=== PATIENT | female | born 1990 | race Caucasian/White ===

== ENCOUNTER 2020-02-21 07:17 | Inpatient (IN) | payer BC ==
[~2020-02-21 07:17] MED LIST: Bupivacaine 0.25% 10 ML SDV ONE; ePHEDrine Sulfate/0.9% NaCl/Pf 25 MG/5 ML SYRINGE IV ONE
[2020-02-21] MEDS ORDERED: Sodium Chloride 0.9% 10 ML Syringe FLUSH PRN (07:28)
[2020-02-21] MEDS ORDERED: Ondansetron 4 MG/2 ML SDV IVPUSH PRN (07:28)
[2020-02-21] MEDS ORDERED: Nalbuphine 10 MG/ML Syringe IVPUSH PRN (07:28)
[2020-02-21] MEDS ORDERED: Oxytocin/Lactated Ringers 10 UNIT/1,000 ML BAG IV SCH ×2 (07:30)
[2020-02-21] MEDS: Lactated Ringers 1,000 ML IV SCH ×3 (08:57→11:27)
[2020-02-21] MEDS ORDERED: fentaNYL 100 MCG/2 ML SDV EPIDUR PRN (09:07)
[2020-02-21] MEDS ORDERED: ePHEDrine 50 MG/ML SDV IVPUSH PRN (09:07)
[2020-02-21] MEDS ORDERED: Bupivacaine/fentaNYL/NS 100 ML Bag EPIDUR PRN (09:07)
[2020-02-21] MEDS ORDERED: diphenhydrAMINE 50 MG/ML SDV IVPUSH PRN (09:07)
--- NOTE | 2020-02-21 10:32 | PCM.PREANE ---
Preanesthetic Assessment - Procedure Proposed Procedure: epid - Anesthesia/Transfusion/Family Hx Anesthesia History: Prior Anesthesia Without Reaction Family History of Anesthesia Reaction: No Transfusion History: No Prior Transfusion(s) Type of Transfusion Reactions: Reports: Unknown - Review of Systems General: No Symptoms Pulmonary: No Symptoms Cardiovascular: No Symptoms Gastrointestinal: No Symptoms Neurological: No Symptoms Other: Reports: Depression, Anxiety - Physical Assessment Vital Signs: Last Vital Signs Temp 99.2 F 02/21/20 07:43 Pulse 74 02/21/20 07:43 Resp 16 02/21/20 07:43 BP 130/87 02/21/20 07:43 Pulse Ox 97 02/21/20 07:43 Height: 5 ft 7 in Weight: 89.811 kg ASA Class: 2 Mental Status: Alert & Oriented x3 Airway Class: Mallampati = 1 Dentition: Reports: Normal Dentition Thyro-Mental Finger Breadths: 3 Mouth Opening Finger Breadths: 3 ROM/Head Extension: Full Lungs: Clear to Auscultation, Normal Respiratory Effort Cardiovascular: Regular Rate, Regular Rhythm - Lab Values: Laboratory Last Values WBC 8.91 K/mm3 (3.98-10.04) 02/21/20 07:54 RBC 4.35 M/mm3 (3.98-5.22) 02/21/20 07:54 Hgb 12.4 gm/dl (11.2-15.7) 02/21/20 07:54 Hct 37.2 % (34.1-44.9) 02/21/20 07:54 MCV 85.5 fl (79.4-94.8) 02/21/20 07:54 MCH 28.5 pg (25.6-32.2) 02/21/20 07:54 MCHC 33.3 g/dl (32.2-35.5) 02/21/20 07:54 RDW Std Deviation 39.9 fL (36.4-46.3) 02/21/20 07:54 Plt Count 239 K/mm3 (182-369) 02/21/20 07:54 MPV 9.4 fl (9.4-12.3) 02/21/20 07:54 Neut % (Auto) 76.4 % (34.0-71.1) H 02/21/20 07:54 Lymph % (Auto) 13.4 % (19.3-51.7) L 02/21/20 07:54 [place] % (Auto) 9.1 % (4.7-12.5) 02/21/20 07:54 Eos % (Auto) 0.8 (0.7-5.8) 02/21/20 07:54 Baso % (Auto) 0.2 % (0.1-1.2) 02/21/20 07:54 Neut # (Auto) 6.81 K/mm3 (1.56-6.13) H 02/21/20 07:54 Lymph # (Auto) 1.19 K/mm3 (1.18-3.74) 02/21/20 07:54 [place] # (Auto) 0.81 K/mm3 (0.24-0.36) H 02/21/20 07:54 Eos # (Auto) 0.07 K/mm3 (0.04-0.36) 02/21/20 07:54 Baso # (Auto) 0.02 K/mm3 (0.01-0.08) 02/21/20 07:54 SARS-CoV-2 RNA (FRANCES) Negative (NEGATIVE) 02/21/20 07:54 Blood Type AB POSITIVE 02/21/20 07:54 Gel Antibody Screen Negative 02/21/20 07:54 - Allergies Allergies/Adverse Reactions: Allergies Allergy/AdvReac Type Severity Reaction Status Date / Time No Known Allergies Allergy Verified 02/21/20 07:27 - Blood Blood Available: No - Acknowledgements Anesthesia Type Planned: Epidural Pt an Appropriate Candidate for the Planned Anesthesia: Yes Alternatives and Risks of Anesthesia Discussed w Pt/Guardian: Yes Pt/Guardian Understands and Agrees with Anesthesia Plan: Yes PreAnesthesia Questionnaire Cardiovascular History: Reports: None Respiratory History: Reports: None Gastrointestinal History: Reports: None 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: 3 Musculoskeletal History: Reports: None Psychiatric History: Reports: Anxiety, Depression, Other (See Below) Other Psychiatric History: Previously on meds, pt states she will start meds again after delivery of this baby Oncologic (Cancer) History: Reports: None - Past Surgical History HEENT Surgical History: Reports: Oral Surgery Musculoskeletal Surgical History: Reports: Other (See Below) Other Musculoskeletal Surgeries/Procedures:: 2006 left knee surgery Dermatological Surgical History: Reports: None - SUBSTANCE USE Tobacco Use Status *Q: Former Tobacco User Tobacco Use Within Last Twelve Months: Cigarettes Second Hand Smoke Exposure: No Days Per Week of Alcohol Use: 0 Recreational Drug Use History: No - HOME MEDS Home Medications: Home Meds Cyanocobalamin (Vitamin B-12) [Vitamin B-12] 500 mcg SL DAILY 02/21/20 [History] Magnesium Amino Acid Chelate [Magnesium] 100 mg PO DAILY 02/21/20 [History] Pnv No.95/Ferrous Fum/Folic AC [ Tablet] 1 tab PO DAILY 02/21/20 [History] - CURRENT (IN HOUSE) MEDS Current Meds: Current Medications Diphenhydramine HCl (Benadryl) 25 mg IVPUSH Q6H PRN PRN Reason: pruritis Ephedrine Sulfate (Ephedrine Sulfate) 5 mg IVPUSH ASDIRECTED PRN PRN Reason: Hypotension Fentanyl (Sublimaze) 100 mcg EPIDUR Q3H PRN PRN Reason: Pain Fentanyl/Bupivacaine HCl (Fentanyl/Bupivacaine/Ns 2 Mcg-0.125% 100 Ml) 100 ml EPIDUR ASDIRECTED PRN PRN Reason: Pain Oxytocin/Lactated Ringer's (Pitocin In Lr 10 Units/1,000 Ml) 10 unit in 1,000 mls @ 12 mls/hr IV TITRATE АНДРЕЙ; Protocol Last Admin: 02/21/20 08:58 Dose: 2 munits/min, 12 mls/hr Documented by: Oxytocin/Lactated Ringer's (Pitocin In Lr 10 Units/1,000 Ml) 10 unit in 1,000 mls @ 100 mls/hr IV .CONTINUOUS АНДРЕЙ Lactated Ringer's (Ringers, Lactated) 1,000 mls @ 100 mls/hr IV ASDIRECTED АНДРЕЙ Last Admin: 02/21/20 10:26 Dose: 100 mls/hr Documented by: Nalbuphine HCl (Nubain) 10 mg IVPUSH Q2H PRN PRN Reason: Pain Ondansetron HCl (Zofran) 4 mg IVPUSH Q4H PRN PRN Reason: Nausea/Vomiting Sodium Chloride (Saline Flush) 10 ml FLUSH ASDIRECTED PRN PRN Reason: Keep Vein Open
--- NOTE | 2020-02-21 11:43 | PCM.LDHP ---
L&D History of Present Illness - General Date of Service: 02/21/20 Admit Problem/Dx: Patient Status Order with Admit Dx/Problem 02/21/20 07:28 Patient Status [ADT] Routine Admission Diagnosis/Problem Admission Diagnosis/Problem Source of Information: Patient History Limitations: Reports: No Limitations - History of Present Illness Introduction:: Patient is a 29 y/o at 39 0/7 wks who presents for IOL given distance from hospital. Doing well today. 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): Psychiatric History: Reports: Anxiety, Depression - Past Surgical History HEENT Surgical History: Reports: Oral Surgery Musculoskeletal Surgical History: Reports: Other (See Below) Other Musculoskeletal Surgeries/Procedures:: 2005 left knee surgery Dermatological Surgical History: Reports: None Social & Family History - Family History Family Medical History: Noncontributory - Tobacco Use Tobacco Use Status *Q: Former Tobacco User Years of Tobacco use: 8 Packs/Tins Daily: 0.5 Used Tobacco, but Quit: Yes Month/Year Tobacco Last Used: 2017 Second Hand Smoke Exposure: No - Alcohol Use Alcohol Use History: No Days Per Week of Alcohol Use: 0 - Recreational Drug Use Recreational Drug Use: No H&P Review of Systems - Review of Systems: Review Of Systems: See Below General: Reports: No Symptoms Pulmonary: Reports: No Symptoms Cardiovascular: Reports: No Symptoms Gastrointestinal: Reports: No Symptoms Genitourinary: Reports: No Symptoms Musculoskeletal: Reports: No Symptoms Psychiatric: Reports: No Symptoms Neurological: Reports: No Symptoms L&D Exam - Exam Exam: See Below - Vital Signs Vital Signs: Last Vital Signs Temp 37.3 C 02/21/20 07:43 Pulse 74 02/21/20 07:43 Resp 16 10/13/20 07:43 BP 130/87 02/21/20 07:43 Pulse Ox 97 02/21/20 07:43 Weight: 89.811 kg - OB Specific Contraction Intensity: Mild to Moderate Movement: Active Heart Tones: Present Heart Tones per Min: 150 Heart Rate (FHR) Variability: Moderate (6-25 bmp) Presentation: Vertex - Pan Score Pan Score Cervix Position: Midposition Pan Score Consistency: Soft Pan Score Effacement: 51-70% Apn Score Dilation: 1-2 cm Pan Score 's Station: -3 Pan Score Total: 6 - Exam General: Alert, Oriented, Cooperative Lungs: Clear to Auscultation, Normal Respiratory Effort Cardiovascular: Regular Rate, Regular Rhythm GI/Abdominal Exam: Soft, Non-Tender Genitourinary: Normal external exam Extremities: Normal Inspection Skin: Warm, Dry, Intact - Patient Data Lab Results Last 24 hrs: Laboratory Results - last 24 hr 02/21/20 02/21/20 02/21/20 Range/Units 07:54 07:54 07:54 WBC 8.91 (3.98-10.04) K/mm3 RBC 4.35 (3.98-5.22) M/mm3 Hgb 12.4 (11.2-15.7) gm/dl Hct 37.2 (34.1-44.9) % MCV 85.5 (79.4-94.8) fl MCH 28.5 (25.6-32.2) pg MCHC 33.3 (32.2-35.5) g/dl RDW Std Deviation 39.9 (36.4-46.3) fL Plt Count 239 (182-369) K/mm3 MPV 9.4 (9.4-12.3) fl Neut % (Auto) 76.4 H (34.0-71.1) % Lymph % (Auto) 13.4 L (19.3-51.7) % [place] % (Auto) 9.1 (4.7-12.5) % Eos % (Auto) 0.8 (0.7-5.8) Baso % (Auto) 0.2 (0.1-1.2) % Neut # (Auto) 6.81 H (1.56-6.13) K/mm3 Lymph # (Auto) 1.19 (1.18-3.74) K/mm3 [place] # (Auto) 0.81 H (0.24-0.36) K/mm3 Eos # (Auto) 0.07 (0.04-0.36) K/mm3 Baso # (Auto) 0.02 (0.01-0.08) K/mm3 SARS-CoV-2 RNA (FRANCES) Negative (NEGATIVE) Blood Type AB POSITIVE Gel Antibody Screen Negative Result Diagrams: 02/21/20 07:54 - Problem List (1) 39 weeks gestation of SNOMED Code(s): 08945190 ICD Code: Z3A.39 - 39 WEEKS GESTATION OF Status: Acute Current Visit: Yes Problem List Initiated/Reviewed/Updated: Yes Orders Last 24hrs: Active Orders 24 hr Category Date Time Status Patient Status [ADT] Routine ADT 02/21/20 07:28 Active Activity as Tolerated [RC] PFP Care 02/21/20 07:28 Active Communication Order [RC] ASDIRECTED Care 02/21/20 07:28 Active Notify Provider [RC] ASDIRECTED Care 02/21/20 09:07 Active Notify Provider [RC] PFP Care 02/21/20 07:28 Active Notify Provider [RC] PRN Care 02/21/20 07:28 Active Peripheral IV Care [RC] . DIRECTED Care 02/21/20 07:28 Active Pump Management, Intrathecal [RC] ASDIRECTED Care 02/21/20 07:29 Active Vital Signs [RC] PER UNIT ROUTINE Care 02/21/20 07:28 Active Regular Diet [DIET] Diet 02/21/20 Breakfast Active PATIENT RETYPE [BBK] Routine Lab 02/21/20 08:46 Ordered RAPID PLASMA REAGIN,RPR [CHEM] Routine Lab 02/21/20 07:54 Received Bupivacaine/fentaNYL/NS [fentaNYL/Bupivacaine/NS 2 MCG- Med 02/21/20 09:07 Active 0.125% 100 ML] 100 ml EPIDUR ASDIRECTED PRN Lactated Ringers [Ringers, Lactated] 1,000 ml Med 02/21/20 07:30 Active IV ASDIRECTED Nalbuphine [Nubain] Med 02/21/20 07:28 Active 10 mg IVPUSH Q2H PRN Ondansetron [Zofran] Med 02/21/20 07:28 Active 4 mg IVPUSH Q4H PRN Oxytocin/Lactated Ringers [Pitocin in LR 10 Units/1,000 Med 02/21/20 07:30 Active ML] 10 unit in 1,000 ml IV .CONTINUOUS Oxytocin/Lactated Ringers [Pitocin in LR 10 Units/1,000 Med 02/21/20 07:30 Active ML] 10 unit in 1,000 ml IV TITRATE Sodium Chloride 0.9% [Saline Flush] Med 02/21/20 07:28 Active 10 ml FLUSH ASDIRECTED PRN diphenhydrAMINE [Benadryl] Med 02/21/20 09:07 Active 25 mg IVPUSH Q6H PRN ePHEDrine [ePHEDrine sulfate] Med 02/21/20 09:07 Active 5 mg IVPUSH ASDIRECTED PRN fentaNYL [Sublimaze] Med 02/21/20 09:07 Active 100 mcg EPIDUR Q3H PRN Electronic Heart Tones Ext w TOCO [WOMSER] Oth 02/21/20 07:28 Ordered Routine Electronic Heart Tones Internal [WOMSER] Per Unit Oth 02/21/20 07:28 Ordered Routine Peripheral IV Insertion Adult [OM.PC] Routine Oth 02/21/20 07:28 Ordered Resuscitation Status Routine Resus Stat 02/21/20 07:28 Ordered Medication Orders Diphenhydramine HCl (Benadryl) 25 mg IVPUSH Q6H PRN PRN Reason: pruritis Ephedrine Sulfate (Ephedrine Sulfate) 5 mg IVPUSH ASDIRECTED PRN PRN Reason: Hypotension Fentanyl (Sublimaze) 100 mcg EPIDUR Q3H PRN PRN Reason: Pain Last Admin: 02/21/20 10:43 Dose: 100 mcg Documented by: ZAFAR Fentanyl/Bupivacaine HCl (Fentanyl/Bupivacaine/Ns 2 Mcg-0.125% 100 Ml) 100 ml EPIDUR ASDIRECTED PRN PRN Reason: Pain Last Admin: 02/21/20 10:43 Dose: 100 ml Documented by: ZAFAR Oxytocin/Lactated Ringer's (Pitocin In Lr 10 Units/1,000 Ml) 10 unit in 1,000 mls @ 12 mls/hr IV TITRATE АНДРЕЙ; Protocol Last Titration: 02/21/20 10:00 Dose: 4 munits/min, 24 mls/hr Documented by: Admin: 02/21/20 08:58 Dose: 2 munits/min, 12 mls/hr Documented by: ZAFAR Oxytocin/Lactated Ringer's (Pitocin In Lr 10 Units/1,000 Ml) 10 unit in 1,000 mls @ 100 mls/hr IV .CONTINUOUS АНДРЕЙ Lactated Ringer's (Ringers, Lactated) 1,000 mls @ 100 mls/hr IV ASDIRECTED АНДРЕЙ Last Admin: 02/21/20 11:27 Dose: 100 mls/hr Documented by: Infusion: 02/21/20 11:27 Dose: 100 mls/hr Documented by: Admin: 02/21/20 10:26 Dose: 100 mls/hr Documented by: Infusion: 02/21/20 10:26 Dose: 100 mls/hr Documented by: Admin: 02/21/20 08:57 Dose: 100 mls/hr Documented by: ZAFAR Nalbuphine HCl (Nubain) 10 mg IVPUSH Q2H PRN PRN Reason: Pain Ondansetron HCl (Zofran) 4 mg IVPUSH Q4H PRN PRN Reason: Nausea/Vomiting Sodium Chloride (Saline Flush) 10 ml FLUSH ASDIRECTED PRN PRN Reason: Keep Vein Open Assessment/Plan Comment:: * Labs done * GBS negative * Pitocin / AROM * Pain management per patient preference * Anticipate
--- NOTE | 2020-02-21 11:43 | PCM.PNLD ---
Labor Progress Note - VS & Meds Vital Signs: Last Vital Signs Temp 37.3 C 02/21/20 07:43 Pulse 74 02/21/20 07:43 Resp 16 02/21/20 07:43 BP 130/87 02/21/20 07:43 Pulse Ox 97 02/21/20 07:43 Active Medications: Current Medications Diphenhydramine HCl (Benadryl) 25 mg IVPUSH Q6H PRN PRN Reason: pruritis Ephedrine Sulfate (Ephedrine Sulfate) 5 mg IVPUSH ASDIRECTED PRN PRN Reason: Hypotension Fentanyl (Sublimaze) 100 mcg EPIDUR Q3H PRN PRN Reason: Pain Last Admin: 02/21/20 10:43 Dose: 100 mcg Documented by: Fentanyl/Bupivacaine HCl (Fentanyl/Bupivacaine/Ns 2 Mcg-0.125% 100 Ml) 100 ml EPIDUR ASDIRECTED PRN PRN Reason: Pain Last Admin: 02/21/20 10:43 Dose: 100 ml Documented by: Oxytocin/Lactated Ringer's (Pitocin In Lr 10 Units/1,000 Ml) 10 unit in 1,000 mls @ 12 mls/hr IV TITRATE АНДРЕЙ; Protocol Last Titration: 02/21/20 10:00 Dose: 4 munits/min, 24 mls/hr Documented by: Oxytocin/Lactated Ringer's (Pitocin In Lr 10 Units/1,000 Ml) 10 unit in 1,000 mls @ 100 mls/hr IV .CONTINUOUS АНДРЕЙ Lactated Ringer's (Ringers, Lactated) 1,000 mls @ 100 mls/hr IV ASDIRECTED АНДРЕЙ Last Admin: 02/21/20 11:27 Dose: 100 mls/hr Documented by: Nalbuphine HCl (Nubain) 10 mg IVPUSH Q2H PRN PRN Reason: Pain Ondansetron HCl (Zofran) 4 mg IVPUSH Q4H PRN PRN Reason: Nausea/Vomiting Sodium Chloride (Saline Flush) 10 ml FLUSH ASDIRECTED PRN PRN Reason: Keep Vein Open - Uterine Contractions Uterine Monitoring Mode: External [place] Contraction Intensity: Mild to Moderate Uterine Resting Tone: Soft - Monitoring Monitor Mode: External Ultrasound Heart Rate (FHR) Baseline: 130 Heart Rate (FHR) Variability: Moderate (6-25 bmp) Accelerations: Present, 15x15 Decelerations: None Strip Review: Category I - Vaginal Exam Dilation (cm): 3 Effacement (Percent): 50 Station: -2 Cervical Position: Midposition - Labor Progress (Free Text) Labor Progress: Doing well. AROM performed with release of scant amount of fluid. Continue pitocin per protocol. Currently at 4
--- NOTE | 2020-02-21 16:06 | PCM.DEL ---
L & D Note - General Info Date of Service: 02/21/20 - Delivery Note Labor: Induced by ARM, Induced by Oxytocin Delivery Outcome: Livebirth Infant Delivery Method: Spontaneous Vaginal Delivery-Single Infant Delivery Mode: Vacuum Extraction Presentation: Right Occiput Posterior (ROP) Nuchal Cord: Present, Reduced Anesthesia Type: Epidural Amniotic Fluid Description: Clear Episiotomy Type: None Laceration: 1st Degree, Perineal Suture type: Vicryl Suture size: 2-0 Placenta: Intact, Spontaneous Cord: 3 Vessels Estimated Blood Loss: 100 [place]: Bulb Syringe, Stimulated, Warmed, [place] Used, Warmer Used Delivery Comments (Free Text/Narrative):: The patient was pushing in the dorsal lithotomy position. Sterile vaginal exam complete/complete/+3 station. head in ROP presentation. Maternal pushing effort was good and the pelvis was felt to be adequate for an instrument assisted delivery. Patient noted to have persistent variable decelerations with pushing. These initially were note as deep, but as pushing went on FHR would drop into the 60's' and then was only recovering into the 90's and 100's. Given concern for potential compromise the decision was made to proceed with vacuum assisted vaginal delivery. The mushroom cup was placed without difficulty with care to avoid the vaginal side taveras at 15:42:41. Total pressure applied 550 mm Hg. Hissing like sound noted from vacuum and noted to come off at 15:43:05 or only 15 seconds later. Not really felt to be a pop off. Reapplied again at 15:43:38 and with similar sound and release at 15:44:00 or only 20 seconds. Given these releases were felt be more malfunction than popoff one last placement done at 15:44:56, but again released at 15:45:13. At this time vacuum abandoned. head close to crowing. Pressure applied on perineum to aid in head emergence. head delivered from ROP presentation. Nuchal cord present and reduced. With gentle downward traction the shoulders and body delivered. Infant placed on maternal abdomen. Cord clamped and cut. Cord blood obtained for cord gas. Cord blood obtained. Placenta allowed time to separate and expelled intact. Inspection of the perineum showed small 1st degree laceration which was repaired with a 2-0 Vicryl in the typical fashion. Vacuum Extractor Progress Note - Alternative Labor Strategies Considered Alternative Labor Strategies Considered:: Reports: Yes Strategies Considered:: Reports: Contraction Intensity Adequate Indications Considered:: Reports: Yes Indications:: Reports: Suspicion of Immediate or Potential Compromise Time Out:: Reports: Yes - Patient Prepared Patient Prepared:: Reports: Yes Informed Consent:: Reports: Verbal Risks: Reports: Yes Risks Include:: Reports: Laceration, Maternal Injury, Other ( injury) Anesthesia/Analgesia Adequate:: Reports: Yes - Probability of Success High Probability of Success:: Reports: Yes Weight Estimated:: Reports: AGA Patient Diabetic:: Reports: No Pelvis Adequate:: Reports: Yes Position:: ROP Asynclitic:: Reports: No Station:: +3 - Application Time Maximum Application Time & Number of Pop-Offs Predetermined:: Reports: Yes Maximum Pressure Maintained in [place] (cm Hg):: 550 Total Application Time (min): *max=20min: 1 Number of Times Cup Disengaged:: 0 (See description of delivery ) Type of Vacuum Used:: Reports: Cup: Mushroom type - Exit Strategy Exit strategy available:: Reports: Yes and resuscitation teams readily available:: Reports: Yes - General Info Date of Service: 02/21/20 - Patient Data Weight - Most Recent: 89.811 kg - Problem List & Annotations (1) 39 weeks gestation of SNOMED Code(s): 54004322 Code(s): Z3A.39 - 39 WEEKS GESTATION OF Status: Acute Current Visit: Yes (2) Vaginal delivery SNOMED Code(s): 493996046 Code(s): O80 - ENCOUNTER FOR FULL-TERM UNCOMPLICATED DELIVERY Status: Acute Current Visit: Yes - Problem List Review Problem List Initiated/Reviewed/Updated: Yes - My Orders Last 24 Hours: My Active Orders 02/21/20 Breakfast Regular Diet [DIET] 02/21/20 07:28 Patient Status [ADT] Routine Activity as Tolerated [RC] PFP Communication Order [RC] ASDIRECTED Notify Provider [RC] PFP Notify Provider [RC] PRN Peripheral IV Care [RC] . DIRECTED Vital Signs [RC] PER UNIT ROUTINE Nalbuphine [Nubain] 10 mg IVPUSH Q2H PRN Ondansetron [Zofran] 4 mg IVPUSH Q4H PRN Sodium Chloride 0.9% [Saline Flush] 10 ml FLUSH ASDIRECTED PRN Electronic Heart Tones Ext w TOCO [WOMSER] Routine Electronic Heart Tones Internal [WOMSER] Per Unit Routine Peripheral IV Insertion Adult [OM.PC] Routine Resuscitation Status Routine 02/21/20 07:29 Pump Management, Intrathecal [RC] ASDIRECTED 02/21/20 07:30 Lactated Ringers [Ringers, Lactated] 1,000 ml IV ASDIRECTED Oxytocin/Lactated Ringers [Pitocin in LR 10 Units/1,000 ML] 10 unit in 1,000 ml IV .CONTINUOUS Oxytocin/Lactated Ringers [Pitocin in LR 10 Units/1,000 ML] 10 unit in 1,000 ml IV TITRATE 02/21/20 07:54 RAPID PLASMA REAGIN,RPR [CHEM] Routine 02/21/20 08:46 PATIENT RETYPE [BBK] Routine 02/21/20 16:03 Patient Status Manage Transfer [TRANSFER] Routine - Assessment Assessment:: PPD#0 - Plan Plan:: * Routine cares * Breast feeding * Discharge home in 1-2 days
[2020-02-21] MEDS ORDERED: Benzocaine/Menthol 20%-0.5% Spray 56 GM Canister TOP PRN (16:28)
[2020-02-21] MEDS ORDERED: Acetaminophen 325 MG Tab PO PRN (16:28)
[2020-02-21] MEDS ORDERED: Witch Hazel Medicated Pads 40/Jar TOP PRN (16:28)
[2020-02-21] MEDS: Ibuprofen 600 MG Tab PO PRN (17:50)
[2020-02-22] MEDS: Ibuprofen 600 MG Tab PO PRN ×3 (02:20→19:00)
--- NOTE | 2020-02-22 07:00 | PCM.PNPP ---
- General Info Date of Service: 02/22/20 Functional Status: Reports: Pain Controlled, Tolerating Diet, Ambulating, Urinating - Review of Systems General: Reports: No Symptoms Pulmonary: Reports: No Symptoms Cardiovascular: Reports: No Symptoms Gastrointestinal: Reports: No Symptoms Genitourinary: Reports: No Symptoms Musculoskeletal: Reports: No Symptoms Neurological: Reports: No Symptoms - Patient Data Vital Signs - Most Recent: Last Vital Signs Temp 36.9 C 02/22/20 04:38 Pulse 59 L 02/22/20 04:38 Resp 16 02/22/20 04:38 BP 105/65 02/22/20 04:38 Pulse Ox 98 02/22/20 04:38 Weight - Most Recent: 89.811 kg I&O - Last 24 Hours: Intake & Output 02/21/20 02/22/20 02/22/20 22:59 06:59 14:59 Intake Total 4240 Output Total 500 Balance 3740 Lab Results - Last 24 Hours: Laboratory Results - last 24 hr 02/21/20 02/21/20 02/21/20 Range/Units 07:54 07:54 07:54 WBC 8.91 (3.98-10.04) K/mm3 RBC 4.35 (3.98-5.22) M/mm3 Hgb 12.4 (11.2-15.7) gm/dl Hct 37.2 (34.1-44.9) % MCV 85.5 (79.4-94.8) fl MCH 28.5 (25.6-32.2) pg MCHC 33.3 (32.2-35.5) g/dl RDW Std Deviation 39.9 (36.4-46.3) fL Plt Count 239 (182-369) K/mm3 MPV 9.4 (9.4-12.3) fl Neut % (Auto) 76.4 H (34.0-71.1) % Lymph % (Auto) 13.4 L (19.3-51.7) % [place] % (Auto) 9.1 (4.7-12.5) % Eos % (Auto) 0.8 (0.7-5.8) Baso % (Auto) 0.2 (0.1-1.2) % Neut # (Auto) 6.81 H (1.56-6.13) K/mm3 Lymph # (Auto) 1.19 (1.18-3.74) K/mm3 [place] # (Auto) 0.81 H (0.24-0.36) K/mm3 Eos # (Auto) 0.07 (0.04-0.36) K/mm3 Baso # (Auto) 0.02 (0.01-0.08) K/mm3 RPR Non-reactive (NONREACTIVE) SARS-CoV-2 RNA (FRANCES) (NEGATIVE) Blood Type AB POSITIVE Gel Antibody Screen Negative 02/21/20 Range/Units 07:54 WBC (3.98-10.04) K/mm3 RBC (3.98-5.22) M/mm3 Hgb (11.2-15.7) gm/dl Hct (34.1-44.9) % MCV (79.4-94.8) fl MCH (25.6-32.2) pg MCHC (32.2-35.5) g/dl RDW Std Deviation (36.4-46.3) fL Plt Count (182-369) K/mm3 MPV (9.4-12.3) fl Neut % (Auto) (34.0-71.1) % Lymph % (Auto) (19.3-51.7) % [place] % (Auto) (4.7-12.5) % Eos % (Auto) (0.7-5.8) Baso % (Auto) (0.1-1.2) % Neut # (Auto) (1.56-6.13) K/mm3 Lymph # (Auto) (1.18-3.74) K/mm3 [place] # (Auto) (0.24-0.36) K/mm3 Eos # (Auto) (0.04-0.36) K/mm3 Baso # (Auto) (0.01-0.08) K/mm3 RPR (NONREACTIVE) SARS-CoV-2 RNA (FRANCES) Negative (NEGATIVE) Blood Type Gel Antibody Screen Med Orders - Current: Current Medications Acetaminophen (Tylenol) 650 mg PO Q4H PRN PRN Reason: mild pain or fever Benzocaine/Menthol (Dermoplast Pain Relief [place]) 0 gm TOP ASDIRECTED PRN PRN Reason: Perineal Comfort Measure Last Admin: 02/21/20 17:49 Dose: 1 canister Documented by: Docusate Sodium (Colace) 100 mg PO BID PRN PRN Reason: Constipation Ibuprofen (Motrin) 600 mg PO Q6H PRN PRN Reason: Mild pain or fever Last Admin: 02/22/20 02:20 Dose: 600 mg Documented by: Kenny Tidwell ([place]) 1 pad TOP ASDIRECTED PRN PRN Reason: Perineal Comfort Measure Last Admin: 02/21/20 17:49 Dose: 1 container Documented by: Discontinued Medications Diphenhydramine HCl (Benadryl) 25 mg IVPUSH Q6H PRN PRN Reason: pruritis Ephedrine Sulfate (Ephedrine Sulfate) 5 mg IVPUSH ASDIRECTED PRN PRN Reason: Hypotension Fentanyl (Sublimaze) 100 mcg EPIDUR Q3H PRN PRN Reason: Pain Last Admin: 02/21/20 10:43 Dose: 100 mcg Documented by: Fentanyl/Bupivacaine HCl (Fentanyl/Bupivacaine/Ns 2 Mcg-0.125% 100 Ml) 100 ml EPIDUR ASDIRECTED PRN PRN Reason: Pain Last Admin: 02/21/20 10:43 Dose: 100 ml Documented by: Oxytocin/Lactated Ringer's (Pitocin In Lr 10 Units/1,000 Ml) 10 unit in 1,000 mls @ 12 mls/hr IV TITRATE АНДРЕЙ; Protocol Last Titration: 02/21/20 15:48 Dose: 166.5 munits/min, 999 mls/hr Documented by: Oxytocin/Lactated Ringer's (Pitocin In Lr 10 Units/1,000 Ml) 10 unit in 1,000 mls @ 100 mls/hr IV .CONTINUOUS АНДРЕЙ Lactated Ringer's (Ringers, Lactated) 1,000 mls @ 100 mls/hr IV ASDIRECTED АНДРЕЙ Last Admin: 02/21/20 11:27 Dose: 100 mls/hr Documented by: Nalbuphine HCl (Nubain) 10 mg IVPUSH Q2H PRN PRN Reason: Pain Ondansetron HCl (Zofran) 4 mg IVPUSH Q4H PRN PRN Reason: Nausea/Vomiting Sodium Chloride (Saline Flush) 10 ml FLUSH ASDIRECTED PRN PRN Reason: Keep Vein Open - Interaction Disposition, : [place] in Room with Family Interaction: Holding Infant Infant Feeding: Attempted ; Nursed Fair/Poor, Bottle Fed Infant Support Person: - Recovery Exam Fundal Tone: Firm Fundal Level: At Umbilicus Fundal Placement: Midline Lochia Amount: Small Lochia Color: Rubra/Red Perineum Description: Intact, Minimal Bruising/Swelling Episiotomy/Laceration: Approximated Bladder Status: Voiding Urinary Elimination: Voided - Exam General: Alert, Oriented, Cooperative GI/Abdominal Exam: Soft, Non-Tender Extremities: Normal Inspection Skin: Warm, Dry, Intact - Problem List & Annotations (1) 39 weeks gestation of SNOMED Code(s): 12415707 Code(s): Z3A.39 - 39 WEEKS GESTATION OF Status: Acute Current Visit: Yes (2) Vaginal delivery SNOMED Code(s): 766237958 Code(s): O80 - ENCOUNTER FOR FULL-TERM UNCOMPLICATED DELIVERY Status: Acute Current Visit: Yes - Problem List Review Problem List Initiated/Reviewed/Updated: Yes - My Orders Last 24 Hours: My Active Orders 02/21/20 07:28 Resuscitation Status Routine 02/21/20 16:28 Acetaminophen [TylenoL] 650 mg PO Q4H PRN Benzocaine/Menthol [Dermoplast Pain Relief [place]] See Dose Instructions TOP ASDIRECTED PRN Docusate Sodium [Colace] 100 mg PO BID PRN Ibuprofen [Motrin] 600 mg PO Q6H PRN witch Leroy [Tucks] 1 pad TOP ASDIRECTED PRN Heat Therapy [OM.PC] PRN 02/21/20 16:28 Activity as Tolerated [RC] PER UNIT ROUTINE Vital Signs [RC] 03,09,15,21 Assess Lochia [WOMSER] Per Unit Routine Assess Uterine Involution [WOMSER] Per Unit Routine Breast Pump [WOMSER] Per Unit Routine Ice Therapy [OM.PC] Per Unit Routine Perineal Care [OM.PC] Per Unit Routine Peripheral IV Discontinue [OM.PC] Routine Sitz Bath [OM.PC] Per Unit Routine 02/21/20 Dinner Regular Diet [DIET] 02/22/20 16:28 Heat Therapy [OM.PC] PRN - Assessment Assessment:: PPD#1 - Plan Plan:: * Routine cares * Breast feeding * Discharge home today or tomorrow depending upon Cardiopulmonary Technologist preference
--- NOTE | 2020-02-22 07:13 | PCM48HPAN ---
Post Anesthesia Note - EVALUATION WITHIN 48HRS OF ANESTHETIC Vital Signs in Normal Range: Yes Patient Participated in Evaluation: Yes Respiratory Function Stable: Yes Airway Patent: Yes Cardiovascular Function Stable: Yes Hydration Status Stable: Yes Pain Control Satisfactory: Yes Nausea and Vomiting Control Satisfactory: Yes Mental Status Recovered: Yes Vital Signs: Last Vital Signs Temp 36.9 C 02/22/20 04:38 Pulse 59 L 02/22/20 04:38 Resp 16 02/22/20 04:38 BP 105/65 02/22/20 04:38 Pulse Ox 98 02/22/20 04:38 - COMMENTS/OBSERVATIONS Free Text/Narrative:: no anesthesia complications noted
[2020-02-22] MEDS: Docusate Sodium 100 MG Cap PO PRN (20:44)
[2020-02-23] MEDS: Ibuprofen 600 MG Tab PO PRN ×2 (02:56→09:00)
--- NOTE | 2020-02-23 06:58 | PCM.PNPP ---
- General Info Date of Service: 02/23/20 Functional Status: Reports: Pain Controlled, Tolerating Diet, Ambulating, Urinating - Review of Systems General: Reports: No Symptoms Pulmonary: Reports: No Symptoms Cardiovascular: Reports: No Symptoms Gastrointestinal: Reports: No Symptoms Genitourinary: Reports: No Symptoms Musculoskeletal: Reports: No Symptoms Neurological: Reports: No Symptoms Psychiatric: Reports: No Symptoms - Patient Data Vital Signs - Most Recent: Last Vital Signs Temp 36.5 C 02/23/20 04:37 Pulse 65 02/23/20 04:37 Resp 15 02/23/20 04:37 BP 125/73 02/23/20 04:37 Pulse Ox 96 02/23/20 04:37 Weight - Most Recent: 89.811 kg I&O - Last 24 Hours: Intake & Output 02/22/20 02/22/20 02/23/20 14:59 22:59 06:59 Intake Total 240 Balance 240 Med Orders - Current: Current Medications Acetaminophen (Tylenol) 650 mg PO Q4H PRN PRN Reason: mild pain or fever Benzocaine/Menthol (Dermoplast Pain Relief [place]) 0 gm TOP ASDIRECTED PRN PRN Reason: Perineal Comfort Measure Last Admin: 02/21/20 17:49 Dose: 1 canister Documented by: Docusate Sodium (Colace) 100 mg PO BID PRN PRN Reason: Constipation Last Admin: 02/22/20 20:44 Dose: 100 mg Documented by: Ibuprofen (Motrin) 600 mg PO Q6H PRN PRN Reason: Mild pain or fever Last Admin: 02/23/20 02:56 Dose: 600 mg Documented by: Kenny Tidwell ([facility] 1 pad TOP ASDIRECTED PRN PRN Reason: Perineal Comfort Measure Last Admin: 02/21/20 17:49 Dose: 1 container Documented by: Discontinued Medications Bupivacaine HCl (Sensorcaine-Mpf 0.25%) 10 ml .ROUTE .STK-MED ONE Stop: 02/21/20 00:01 Diphenhydramine HCl (Benadryl) 25 mg IVPUSH Q6H PRN PRN Reason: pruritis Ephedrine Sulfate (Ephedrine Sulfate) 5 mg IVPUSH ASDIRECTED PRN PRN Reason: Hypotension Ephedrine Sulfate (Ephedrine 25 Mg/5 Ml Syringe) 25 mg IV .STK-MED ONE Stop: 02/21/20 00:01 Fentanyl (Sublimaze) 100 mcg EPIDUR Q3H PRN PRN Reason: Pain Last Admin: 02/21/20 10:43 Dose: 100 mcg Documented by: Fentanyl/Bupivacaine HCl (Fentanyl/Bupivacaine/Ns 2 Mcg-0.125% 100 Ml) 100 ml EPIDUR ASDIRECTED PRN PRN Reason: Pain Last Admin: 02/21/20 10:43 Dose: 100 ml Documented by: Oxytocin/Lactated Ringer's (Pitocin In Lr 10 Units/1,000 Ml) 10 unit in 1,000 mls @ 12 mls/hr IV TITRATE АНДРЕЙ; Protocol Last Titration: 02/21/20 15:48 Dose: 166.5 munits/min, 999 mls/hr Documented by: Oxytocin/Lactated Ringer's (Pitocin In Lr 10 Units/1,000 Ml) 10 unit in 1,000 mls @ 100 mls/hr IV .CONTINUOUS АНДРЕЙ Lactated Ringer's (Ringers, Lactated) 1,000 mls @ 100 mls/hr IV ASDIRECTED АНДРЕЙ Last Admin: 02/21/20 11:27 Dose: 100 mls/hr Documented by: Nalbuphine HCl (Nubain) 10 mg IVPUSH Q2H PRN PRN Reason: Pain Ondansetron HCl (Zofran) 4 mg IVPUSH Q4H PRN PRN Reason: Nausea/Vomiting Sodium Chloride (Saline Flush) 10 ml FLUSH ASDIRECTED PRN PRN Reason: Keep Vein Open - Interaction Disposition, : [place] in Room with Family Infant Interaction: Holding Infant Feeding: Attempted ; Nursed Fair/Poor, Bottle Fed Support Person: - Recovery Exam Fundal Tone: Firm Fundal Level: 1 Fingerbreadths Below Umbilicus Fundal Placement: Midline Lochia Amount: Small Lochia Color: Rubra/Red Perineum Description: Other (see below) Other Perinuem Description: 1st degree with repair Episiotomy/Laceration: Approximated Bladder Status: Voiding Urinary Elimination: Voided - Exam General: Alert, Oriented, Cooperative GI/Abdominal Exam: Soft, Non-Tender Extremities: Normal Inspection Skin: Warm, Dry, Intact - Problem List & Annotations (1) 39 weeks gestation of SNOMED Code(s): 25087143 Code(s): Z3A.39 - 39 WEEKS GESTATION OF Status: Acute Current Visit: Yes (2) Vaginal delivery SNOMED Code(s): 349718909 Code(s): O80 - ENCOUNTER FOR FULL-TERM UNCOMPLICATED DELIVERY Status: Acute Current Visit: Yes - Problem List Review Problem List Initiated/Reviewed/Updated: Yes - My Orders Last 24 Hours: My Active Orders 02/22/20 16:28 Heat Therapy [OM.PC] PRN 02/23/20 06:58 Ready for Discharge [RC] PER UNIT ROUTINE - Assessment Assessment:: PPD#2 - Plan Plan:: * Routine cares * Breast feeding * Discharge home today
--- NOTE | 2020-02-23 06:59 | PCM.DCSUM1 ---
Discharge Summary - Discharge Data Discharge Date: 02/23/20 Discharge Disposition: Home, Self-Care 01 Condition: Good - Referral to Home Health Primary Care Physician: PCP None - Discharge Diagnosis/Problem(s) (1) 39 weeks gestation of SNOMED Code(s): 91933982 ICD Code: Z3A.39 - 39 WEEKS GESTATION OF Status: Acute Current Visit: Yes (2) Vaginal delivery SNOMED Code(s): 161240942 ICD Code: O80 - ENCOUNTER FOR FULL-TERM UNCOMPLICATED DELIVERY Status: Acute Current Visit: Yes - Patient Summary/Data Complications: None Consults: None Recommended Follow-up Testing/Procedures: Follow up in 3 weeks for check Hospital Course: 29 y/o at 39 0/7 wks who presented for elective IOL. Done with pitocin and AROM. Progressed well to complete dilation. Noted to have deep variables at end of pushing. Attempt made at VAVD, but there was a slight malfunction with vacuum device. See note. Was able to achieve an uncomplicated . did well and was discharged home on PPD#2 - Patient Instructions Diet: Regular Diet as Tolerated Activity: As Tolerated Activity, Other: Pelvic rest for 6 weeks Driving: May Drive Today Showering/Bathing: May Shower Showering/Bathing, Other: May Bathe Notify Provider of: Fever, Increased Pain, Swelling and Redness, Drainage, Nausea and/or Vomiting - Discharge Plan *PRESCRIPTION DRUG MONITORING PROGRAM REVIEWED*: No *COPY OF PRESCRIPTION DRUG MONITORING REPORT IN PATIENT OSWALDO: No Home Medications: Home Meds Cyanocobalamin (Vitamin B-12) [Vitamin B-12] 500 mcg SL DAILY 02/21/20 [History] Docusate Sodium [Colace] 100 mg PO BID PRN cap 02/21/20 [Rx] Ibuprofen [Motrin] 600 mg PO Q6H PRN tablet 02/21/20 [Rx] Magnesium Amino Acid Chelate [Magnesium] 100 mg PO DAILY 02/21/20 [History] Pnv No.95/Ferrous Fum/Folic AC [ Tablet] 1 tab PO DAILY 02/21/20 [History] Patient Handouts: Care After Vaginal Delivery Referrals: Janice Vail MD [Physician] - (3 weeks for check - telehealth appt ) - Discharge Summary/Plan Comment DC Time >30 min.: No - Patient Data Vitals - Most Recent: Last Vital Signs Temp 36.5 C 02/23/20 04:37 Pulse 65 02/23/20 04:37 Resp 15 02/23/20 04:37 BP 125/73 02/23/20 04:37 Pulse Ox 96 02/23/20 04:37 Weight - Most Recent: 89.811 kg I&O - Last 24 hours: Intake & Output 02/22/20 02/22/20 02/23/20 14:59 22:59 06:59 Intake Total 240 Balance 240 Med Orders - Current: Current Medications Acetaminophen (Tylenol) 650 mg PO Q4H PRN PRN Reason: mild pain or fever Benzocaine/Menthol (Dermoplast Pain Relief [place]) 0 gm TOP ASDIRECTED PRN PRN Reason: Perineal Comfort Measure Last Admin: 02/21/20 17:49 Dose: 1 canister Documented by: Docusate Sodium (Colace) 100 mg PO BID PRN PRN Reason: Constipation Last Admin: 02/22/20 20:44 Dose: 100 mg Documented by: Ibuprofen (Motrin) 600 mg PO Q6H PRN PRN Reason: Mild pain or fever Last Admin: 02/23/20 02:56 Dose: 600 mg Documented by: Kenny Tidwell ([facility]) 1 pad TOP ASDIRECTED PRN PRN Reason: Perineal Comfort Measure Last Admin: 02/21/20 17:49 Dose: 1 container Documented by: Discontinued Medications Bupivacaine HCl (Sensorcaine-Mpf 0.25%) 10 ml .ROUTE .STK-MED ONE Stop: 02/21/20 00:01 Diphenhydramine HCl (Benadryl) 25 mg IVPUSH Q6H PRN PRN Reason: pruritis Ephedrine Sulfate (Ephedrine Sulfate) 5 mg IVPUSH ASDIRECTED PRN PRN Reason: Hypotension Ephedrine Sulfate (Ephedrine 25 Mg/5 Ml Syringe) 25 mg IV .STK-MED ONE Stop: 02/21/20 00:01 Fentanyl (Sublimaze) 100 mcg EPIDUR Q3H PRN PRN Reason: Pain Last Admin: 02/21/20 10:43 Dose: 100 mcg Documented by: Fentanyl/Bupivacaine HCl (Fentanyl/Bupivacaine/Ns 2 Mcg-0.125% 100 Ml) 100 ml EPIDUR ASDIRECTED PRN PRN Reason: Pain Last Admin: 02/21/20 10:43 Dose: 100 ml Documented by: Oxytocin/Lactated Ringer's (Pitocin In Lr 10 Units/1,000 Ml) 10 unit in 1,000 mls @ 12 mls/hr IV TITRATE АНДРЕЙ; Protocol Last Titration: 02/21/20 15:48 Dose: 166.5 munits/min, 999 mls/hr Documented by: Oxytocin/Lactated Ringer's (Pitocin In Lr 10 Units/1,000 Ml) 10 unit in 1,000 mls @ 100 mls/hr IV .CONTINUOUS АНДРЕЙ Lactated Ringer's (Ringers, Lactated) 1,000 mls @ 100 mls/hr IV ASDIRECTED АНДРЕЙ Last Admin: 02/21/20 11:27 Dose: 100 mls/hr Documented by: Nalbuphine HCl (Nubain) 10 mg IVPUSH Q2H PRN PRN Reason: Pain Ondansetron HCl (Zofran) 4 mg IVPUSH Q4H PRN PRN Reason: Nausea/Vomiting Sodium Chloride (Saline Flush) 10 ml FLUSH ASDIRECTED PRN PRN Reason: Keep Vein Open
[2020-02-23] MEDS: Docusate Sodium 100 MG Cap PO PRN (09:04)
== END 2020-02-23 11:35 | disposition home or self-care (01) | DRG 560 ==
LOC: JD.OB 07:17 → OBSVTOIN 15:46 → JD.OB 15:46
PROVIDERS: ADMIT Obstetrics & Gynecology; ATTEND Obstetrics & Gynecology
PROC: 10D07Z6 Extraction of Products of Conception, Vacuum, Via Natural or Artificial Opening (ICD-10-PCS; principal; 2020-02-21)
PROC: 10907ZC Drainage of Amniotic Fluid, Therapeutic from Products of Conception, Via Natural or Artificial Opening (ICD-10-PCS; 2020-02-21)
PROC: 3E033VJ Introduction of Other Hormone into Peripheral Vein, Percutaneous Approach (ICD-10-PCS; 2020-02-21)
PROC: 0HQ9XZZ Repair Perineum Skin, External Approach (ICD-10-PCS; 2020-02-21)
PROC: 3E0R3BZ Introduction of Anesthetic Agent into Spinal Canal, Percutaneous Approach (ICD-10-PCS; 2020-02-21)
PROC: 00HU33Z Insertion of Infusion Device into Spinal Canal, Percutaneous Approach (ICD-10-PCS; 2020-02-21)
DX: O69.81X0 Labor and delivery complicated by cord around neck, without compression, not applicable or unspecified (principal); O70.0 First degree perineal laceration during delivery; O76 Abnormality in fetal heart rate and rhythm complicating labor and delivery; Z37.0 Single live birth; Z20.828 Contact with and (suspected) exposure to other viral communicable diseases; Z3A.39 39 weeks gestation of pregnancy; Z87.891 Personal history of nicotine dependence
CPT/HCPCS: 01967; 36415; 51702; 59025; 59409; 85025; 86592; 86850; 86900; 86901; A9270-GY; J0171; J2590; J3010; J3490; J7120; U0002